=== PATIENT | male | born 1960 | race African-American/Black ===

== ENCOUNTER 2021-06-09 13:19 | Inpatient (IN) ==
[2021-06-09] MEDS ORDERED: Senna TAB 8.6 mg TAB PO PRN (17:41)
[2021-06-09] MEDS: Enoxaparin 40 MG/0.4 ML SYR SUBCUT SCH (21:00)
[2021-06-10] MEDS: Aspirin EC 81 mg TAB.EC (enteric coated) PO SCH (09:48)
[2021-06-10] MEDS: Enoxaparin 40 MG/0.4 ML SYR SUBCUT SCH (20:14)
[2021-06-11 05:58] LABS: ABS Eosinophils 0.2 10^3/ul (0-0.6); ABS Lymphocytes 1.9 10^3/ul (1.0-4.8); ABS Monocytes 0.6 10^3/ul (0-0.8); ABS Neutrophils 2.7 10^3/ul (1.5-7.7); Eosinophil % 3.3 %; Hematocrit 38 % (42-52); Hemoglobin 12.3 g/dL (14.0-18.0); Mean Corpuscular HGB Conc 33 g/dL (31-36); Mean Corpuscular Hemoglobin 25 pg (27-31); Mean Corpuscular Volume 77 fL (80-94); Mean Platelet Volume 7.1 fL (7.4-10.4); Nucleated Red Blood Cells % 0.1; Platelet Count 322 10^3/uL (150-450); Red Blood Count 4.91 10^6 /uL (4.18-5.48); Red Cell Distribution Width 14 % (10-15); White Blood Count 5.5 10^3/uL (3.5-10.8)
[2021-06-11 06:26] LABS: Albumin 3.7 g/dL (3.2-5.2); Albumin/Globulin Ratio 1.4 (1-3); Globulin 2.7 g/dL (2-4); Potassium 3.1 mmol/L (3.5-5.0); Total Bilirubin 0.6 mg/dL (0.2-1.0); Total Protein 6.4 g/dL (6.4-8.9); eGFR CKD-EPI 64.3 (>60)
[2021-06-11] MEDS: Aspirin EC 81 mg TAB.EC (enteric coated) PO SCH (09:16)
[2021-06-11] MEDS ORDERED: Potassium Chlor 20 meq TAB.ER PO ONE (11:17)
[2021-06-11] MEDS: Enoxaparin 40 MG/0.4 ML SYR SUBCUT SCH (21:20)
[2021-06-11] MEDS: Potassium Chlor 20 meq TAB.ER PO SCH (21:20)
[2021-06-12] MEDS: Aspirin EC 81 mg TAB.EC (enteric coated) PO SCH (09:23)
[2021-06-12] MEDS: Potassium Chlor 20 meq TAB.ER PO SCH ×2 (09:24→21:15)
[2021-06-12] MEDS: Enoxaparin 40 MG/0.4 ML SYR SUBCUT SCH (21:12)
[2021-06-13] MEDS: Potassium Chlor 20 meq TAB.ER PO SCH ×2 (09:44→20:37)
[2021-06-13] MEDS: Aspirin EC 81 mg TAB.EC (enteric coated) PO SCH (09:44)
[2021-06-13] MEDS: Enoxaparin 40 MG/0.4 ML SYR SUBCUT SCH (20:37)
[2021-06-14 05:49] VITALS: BP 132/82
[2021-06-14] MEDS: Aspirin EC 81 mg TAB.EC (enteric coated) PO SCH (07:42)
[2021-06-14] MEDS: Potassium Chlor 20 meq TAB.ER PO SCH (07:43)
[2021-06-15] MEDS ORDERED: Potassium Chlor 20 meq TAB.ER PO SCH (09:00)
== END 2021-06-14 15:00 | disposition home or self-care (01) | DRG 58 ==
LOC: PMRU 17:32
PROVIDERS: ADMIT Physical Medicine & Rehabilitation; ATTEND Physical Medicine & Rehabilitation